=== PATIENT | male | born 1945 | race Caucasian/White ===

== ENCOUNTER 2018-07-20 14:24 | Emergency (ER) | payer MEDICARE ==
[~2018-07-20 14:24] MED LIST: ISOVUE-370 76%-LOCM 1 ML ONE
[2018-07-20 14:46] LABS: Base Excess-Venous -12.8 mmol/L (0 (+/- 2.5)); Bicarbonate (HCO3v) 12.4 mmol/L (22.0-29.0); CO2 Tension (PvCO2) 24.7 mmHg (41.0-51.0); Calcium, Ionized 1.03 mmol/L (1.12-1.32); Hemoglobin - Calc 5.5 g/dL (12.0-18.0); Lactate 10.16 mmol/L (0.50-2.20); O2 Tension (PvO2) 97.2 mmHg (35.0-45.0); Potassium 4.6 mmol/L (3.4-4.7); T. Carbon Dioxide 13.1 mmol/L (1.0-85.0); pH (Venous) 7.308 (7.35-7.45); vO2 Saturation-calc 97.1 % (94-98)
[2018-07-20 14:51] LABS: Bilirubin Small (Negative); Blood, Urine Negative (Negative); Clarity CLEAR (Clear); Glucose, Urine (Dipstick) 100 mg/dL (Negative); Leukocyte Trace (Negative); Nitrite Negative (Negative); Protein, Urine (Dipstick) Trace mg/dL (Neg-Trace); Urobilinogen 0.2 mg/dL (0.2-1.0); pH, Urine 5.5 (5.0-9.0)
[2018-07-20 14:52] LABS: Hemoglobin 5.8 g/dL (14.0-18.0)
[2018-07-20 14:54] LABS: Bacteria/HPF None Seen HPF (None Seen); Hyaline Casts/LPF 0-3 HYALINE CAST LPF (0-3 Hyaline); Pathc Cast-AUWi Flag 0.14 (0-2.49); RBC/HPF 0-3 HPF (0-3); Squamous Epithelial 0-3 HPF (0-3); WBC/HPF 0-3 HPF (0-3)
[2018-07-20 14:56] LABS: INR-International Normal Ratio 1.9; Mean Corpuscular HGB CONC 31.7 g/dL (32.0-36.0); Mean Corpuscular Hemoglobin 32.3 pg (27.0-31.0); Mean Platelet Volume 11.5 fL (7.4-10.4); PTT 41.4 SEC (22.9-36.1); Platelet Count 34 thou/uL (130-400); Prothrombin Time 22.2 SEC (12.0-14.7); RBC Distribution Width 16.4 % (11.5-14.5)
[2018-07-20] MEDS ORDERED: Ondansetron PF 4 MG/2 ML Vial ONE ×2 (15:14→15:49)
[2018-07-20 15:15] LABS: ALT (SGPT) 35 U/L (8-55); AST (SGOT) 47 U/L (5-34); Albumin 1.6 g/dL (3.4-4.8); Alkaline Phosphatase 304 U/L (40-150); Anion Gap 17 mmol/L (10-20); Anisocytosis SLIGHT = 6-15 cells (100X) (0-5/hpf); BUN (Urea Nitrogen) 19 mg/dL (8.4-25.7); Band 4 % (5-11); Bilirubin, Total 1.3 mg/dL (0.2-1.2); Calc. Creatinine Clearance 0 mL/min (70-130); Carbon Dioxide 13 mmol/L (23-31); Chloride 100 mmol/L (98-107); Estimated GFR-MDRD 60; Globulin 2.3 g/dL (2.4-3.5); Glucose 386 mg/dL (83-110); Hypochromia SLIGHT = 6-15 cells (100X) (0-5/hpf); Lymphocytes 9 % (21-51); MDiff Complete? YES; Macrocytosis SLIGHT = 6-15 cells (100X) (0-5/hpf); Monocytes 6 % (0-10); Neutrophil 81 % (42-75); Nucleated RBC 1 % (0); Ovalocytes SLIGHT = 2-5 cells (100X) (0-1/hpf); PLT Morphology Comment Appears Decreased; Polychromasia SLIGHT = 2-3 cells (100X) (0-2/hpf); Potassium 4.6 mmol/L (3.5-5.1); Protein, Total 3.9 g/dL (5.8-8.1); Schistocytes SLIGHT = 2-5 cells (100X) (0-1/hpf); Sodium 125 mmol/L (136-145)
--- NOTE | 2018-07-20 15:31 | RAD ---
RADIOGRAPH CHEST 1 VIEW: Date: 07-20-18 HISTORY: 72-year-old male with dyspnea and hypoxemia. COMPARISON: None. FINDINGS: There is a left subclavian implantable vascular access port with distal tip overlying the upper porti on of the right atrium. Airspace densities at the bilateral medial lower lobe lung bases represent at electasis, right greater than left. There are bilateral pleural effusions demonstrated on the CTA tod ay that are not visible on this single AP view. No cardiomegaly. No pulmonary edema. IMPRESSION: 1. Bilateral pleural effusions and passive atelectasis at the posterior bases of the bilateral lower lobes. 2. Implantable vascular access port. 3. See separate report of the CT pulmonary angiogram for the positive finding of right sided pulmonar y thromboembolism. Code T JN POS: [id number]
--- NOTE | 2018-07-20 15:40 | CT ---
CTA THORAX WITH CONTRAST: (Computed Tomographic Angiography, chest(noncoronary) with contrast material, and image postprocessin g) (PE protocol) Date: 07/20/18 Time: 1453 hours HISTORY: 72-year-old female with dyspnea, hypoxemia, and hypotension, with tachycardia. History of pancreatic cancer and GI bleeding. Currently unable to contact ER physician. TECHNIQUE: IV injection of iodinated contrast: 100 mL [id number]. Scan acquisition timing attempted to coincide with iodinated contrast bolus reaching maximal density in pulmonary arteries. 3D MIP reconstructions. FINDINGS: The stomach is very distended with ingested contents. There is a percutaneous biliary drainage cathet er entering through the left lobe of the liver, passing through the common hepatic duct and common bi le duct, with pigtail loop in the vicinity of the second stage of the duodenum, which is inseparable from what appears to be a pancreatic mass and very severe dilation of the pancreatic duct that extend s through the head, body, and tail. This is intermixed with gas and fluid density adjacent to the pig tail loop, presumably representing some of the ingested contents of the stomach passing through the d uodenum. It is very difficult to separate the duodenal lumen from the pancreatic severe ductal dilati on and mass. There is a very large number of low density metastatic lesions throughout the liver. Gal lbladder is distended. There is a moderate amount of free fluid in the upper peritoneal cavity, surro unding the liver and abutting the spleen. No splenomegaly. No thoracic aortic aneurysm or dissection. No cardiomegaly or significant pericardial effusion. There are bilateral moderate sized pleural effu sions, occupying approximately 20% of each hemithoracic volume. There is associated passive atelectas is at the adjacent bilateral lower lobes. The rest of the lungs have prominent interstitial markings. No pulmonary metastasis identified. Trachea and major bronchi are patent and clear. No mediastinal o r hilar lymphadenopathy. No pulmonary thromboembolism identified in the pulmonic trunk, or left and r ight main pulmonary arteries. There is elongated thrombus filling a first order branch of the lateral basilar segment of the right lower lobe pulmonary artery. No pulmonary thromboembolism is identified on the contralateral left side. No pneumothorax. There is a left subclavian implantable vascular acc ess port with distal tip at the SVC/right atrial junction. IMPRESSION: 1. Positive for pulmonary thromboembolism involving a third order branch of the right pulmonary mike ry. 2. Moderate size bilateral pleural effusions. 3. Severe hepatic metastasis. 4. Possibility of gastric outlet obstruction by large mass at the pancreatic duct, causing very lynda re chronic dilation of pancreatic duct. 5. Ascites. 6. Distended gallbladder. 7. Internal-external biliary drainage catheter. CODE T. jn[] POS: TPC
[2018-07-20] MEDS ORDERED: Fentanyl 100 MCG/2 ML VIAL ONE ×2 (15:49→16:42)
[2018-07-20] MEDS ORDERED: Promethazine HCl 25 MG/ML VIAL ONE (16:43)
--- NOTE | 2018-07-24 12:27 | EKG ---
Test Reason : Blood Pressure : / mmHG Vent. Rate : 135 BPM Atrial Rate : 135 BPM P-R Int : 148 ms QRS Dur : 078 ms QT Int : 280 ms P-R-T Axes : 015 050 093 degrees QTc Int : 420 ms Sinus tachycardia Low voltage QRS Nonspecific T wave abnormality Abnormal ECG Confirmed by KAYDEN BUNCH ([id number]), publishing editor ELINOR GUADARRAMA ([id number]) on 07/24/2018 12:27:24 PM Referred By: Confirmed By:KAYDEN BUNCH
== END 2018-07-20 17:48 | disposition short-term general hospital (02) ==
LOC: ERS 14:24 → EDBD 14:24 → ERS 17:48
DX: I95.9 Hypotension, unspecified (principal); C25.9 Malignant neoplasm of pancreas, unspecified; D63.0 Anemia in neoplastic disease; K31.1 Adult hypertrophic pyloric stenosis; N40.0 Benign prostatic hyperplasia without lower urinary tract symptoms; Z79.899 Other long term (current) drug therapy
CPT/HCPCS: 36430; 71045; 71275; 80053; 82330; 82435; 82565; 82803; 82947; 83605; 84132; 84295; 84484; 85014; 85025; 85610; 85730; 86850; 86900; 86901; 86920; 87040; 93005; P9016; 36415; 51702; 81003; 81015; 87077; 87149; 96365; 96374; 96375; 96376; J2405; J2550; J3010